=== PATIENT | female | born 1990 | race African-American/Black ===

== ENCOUNTER 2016-09-08 18:41 | Emergency (ER) | payer OTHER ==
[2016-09-08 20:46] LABS: MEAN CORPUSCULAR HGB CONC 31.5 g/dl (32.0-36.5); MEAN CORPUSCULAR VOLUME 82.4 fl (80.0-96.0); RED CELL DISTRIBUTION WIDTH 15.5 % (11.5-14.5); WHITE BLOOD COUNT 8.6 K/mm3 (4.0-10.0)
--- NOTE | 2016-09-08 20:50 | REPUSA ---
CLINICAL HISTORY: with vaginal bleeding TECHNIQUE: Transabdominal and endovaginal ultrasound of the pelvis was performed. FINDINGS: The uterus is anteverted containing a single live intrauterine gestational sac with p ole. CRL measures 1.6 cm correlating to 8 weeks, 0 days. motion and heart rate detected at 160 BPM. 1.3 x 0.6 0.5 cm hemorrhage identified superior to the right of the gestational sac. Both ovaries are identified without adnexal mass or pelvic fluid collection. IMPRESSION: Single live intrauterine correlating to a weeks, 0 days gestation with expected date of del grayson 04/20/2017. 1.3 x 0.6 0.5 cm hemorrhage identified superior to the right of the gestational sac. Close clinical follow-up with serial beta-hCG and short interim pelvic ultrasound recommended.
[2016-09-08 21:23] LABS: ANION GAP 11 MEQ/L (8-16); BLOOD UREA NITROGEN 7 MG/DL (7-18); CALCIUM LEVEL 9.2 MG/DL (8.5-10.1); CARBON DIOXIDE LEVEL 24 MEQ/L (21-32); CHLORIDE LEVEL 102 MEQ/L (98-107); CREATININE FOR GFR 0.67 MG/DL (0.55-1.02); GLOMERULAR FILTRATION RATE > 60.0 (>60); GLUCOSE, FASTING 83 MG/DL (70-105); HCG, SERUM QUANTITATIVE 72973 MIU/ML; POTASSIUM SERUM 4.1 MEQ/L (3.5-5.1); SODIUM LEVEL 137 MEQ/L (136-145)
[2016-09-08] MEDS ORDERED: ACETAMINOPHEN 325 MG TAB As Ordered ONE (21:42)
--- NOTE | 2016-09-08 22:25 | EDDOCDS ---
Physician Documentation [facility] Name: Sarah Terry Age: 26 yrs Sex: Female : 1990 Arrival Date: 09/08/2016 Time: 18:41 Bed I1 / M1 Private MD: Nikhil Sagastume [facility] Disposition: 09/08/16 22:01 Discharged to Home/Self Care. Impression: Threatened . - Condition is Stable. - Discharge Instructions: Threatened Miscarriage, Subchorionic Hematoma. - Medication Reconciliation, Local Pharmacy Hours form. - Follow up: Rocio Sanz CNM; When: Call to arrange an appointment; Reason: Recheck today's complaints, Continuance of care. - Problem is new. - Symptoms are unchanged. Historical: - Allergies: no known allergies; - Home Meds: 1. 1 mg Oral tab daily - PMHx: none; - PSHx: none; - Social history: Smoking status: Patient states was never smoker of tobacco. No barriers to communication noted, The patient speaks fluent Cook Islander, Speaks appropriately for age. - Family history: Not pertinent. - : The pt / caregiver states he / she is not on anticoagulants. Home medication list is obtained from the patient. - Exposure Risk Screening:: None identified. 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 3 in. (160.02 cm) (R); Pain 4/10; 22:02 BP 128 / 69; Pulse 97; Resp 18; Temp 98.4(O); Pulse Ox 100% on R/A; Pain 0/10; jmv 18:44 Body Mass Index 33.66 (86.18 kg, 160.02 cm) gr2 MDM: 19:33 Undress patient appropriately for examination ordered. mo1 19:33 Set up pelvic ordered. mo1 19:33 Complete Blood Count Ordered. EDMS 19:33 Dex (Kleihauer Betke) Ordered. EDMS 19:33 Rh Only Ordered. EDMS 19:33 Urinalysis Ordered. EDMS 19:33 Urine Culture Ordered. EDMS 19:33 GC & Chlamydia Amplification Ordered. EDMS 19:33 Wet Prep Ordered. EDMS 19:33 BMP Ordered. EDMS 19:35 US 1st trimester Ordered. EDMS 19:49 Financial registration complete. gjb 19:50 [facility] Payment Agreement was scanned into [employer] and attached to record. gjb 20:45 HCG, SERUM QUANTITATIVE Ordered. EDMS 21:16 Wet Prep Reviewed. mo1 21:16 Urinalysis Reviewed. mo1 21:16 Rh Only Reviewed. mo1 21:16 Complete Blood Count Reviewed. mo1 21:39 Acetaminophen Tablet 975 mg PO once ordered. mo1 21:39 HCG, SERUM QUANTITATIVE Reviewed. mo1 21:39 BMP Reviewed. mo1 Administered Medications: 21:45 Drug: Acetaminophen 975 mg [acetaminophen 325 mg tablet (3 tabs)] Route: PO; lf1 Signatures: Dispatcher [employer] EDIA Kosta Abdullahi RN RN mlb1 Indy Segura RN RN lf1 Ale Trejo RN RN ttb Kosta Kelley PA PA mo1 Kaela Green b The chart was reviewed and I authenticate all verbal orders and agree with the evaluation and treatment provided.Attachments: 19:50 [facility] Payment Agreement gj MTDD
--- NOTE | 2016-09-08 22:25 | EDDOCDS ---
Nurse's Notes [facility] Name: Sarah Terry Age: 26 yrs Sex: Female : 1990 Arrival Date: 09/08/2016 Time: 18:41 Bed I1 / M1 Private MD: Nikhil Sagastume [facility] Diagnosis: Threatened Presentation: 09/08 18:46 Presenting complaint: Patient states: 8 weeks vaginal bleeding with tissue mlb1 began today also reports lower back cramping. Risk factors: The patient reports no loss of conciousness prior to arrival. This patient has not had a hysterectomy. This patient has not begun menopause. Adult Sepsis Screening: The patient does not have new or worsening altered mentation. Patient's respiratory rate is less than 22. Systolic blood pressure is greater than 100. Patient has a qSOFA score of 0- Negative Sepsis Screen. Suicide/Homicide risk assessment- the patient denies having any suicidal and/or homicidal ideations and does not present with any other emotional, behavioral or mental health complaints. Status: The patient is a dependent. Transition of care: patient was not received from another setting of care. 18:46 Acuity: EDGAR Level 3 mlb1 18:46 Method Of Arrival: Walkin/Carried/Asstd mlb1 Triage Assessment: 18:47 General: Appears in no apparent distress, Behavior is appropriate for age, cooperative. mlb1 Pain: Location: low back area Pain currently is 2 out of 10 on a pain scale. Pt Declines HIV testing. : Reports vaginal bleeding that is light flow. 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 1 mg Oral tab daily - PMHx: none; - PSHx: none; - Social history: Smoking status: Patient states was never smoker of tobacco. No barriers to communication noted, The patient speaks fluent Mongolian, Speaks appropriately for age. - Family history: Not pertinent. - : The pt / caregiver states he / she is not on anticoagulants. Home medication list is obtained from the patient. - Exposure Risk Screening:: None identified. Screenin:33 Screening information is obtained from the patient. Fall risk: No risks identified. jo3 Assistance ADL's: requires no assistance with activities of daily living. Abuse/DV Screen: The patient / caregiver reports he/she is: not in a situation that causes fear, pain or injury. Nutritional screening: No deficits noted. Advance Directives: There is no active DNR order. home support is adequate. Assessment: 20:30 General: Appears in no apparent distress, comfortable, Behavior is appropriate for age, jo3 cooperative, pleasant. Neurological: Level of Consciousness is awake, alert, Oriented to person, place, time. Cardiovascular: No deficits noted. Respiratory: Airway is patent Respiratory effort is even, unlabored. : Reports cramping vaginal bleeding that is bright red light flow. Derm: Skin is intact, Skin is dry, Skin is normal, Skin temperature is warm. 21:38 Adult Sepsis Screening: The patient does not have new or worsening altered mentation. lf1 Patient's respiratory rate is less than 22. Systolic blood pressure is greater than 100. Patient has a qSOFA score of 0- Negative Sepsis Screen. General: Appears in no apparent distress, comfortable, Behavior is cooperative. Pain: Location: headache Pain currently is 3 out of 10 on a pain scale. Neurological: Level of Consciousness is awake, alert. EENT: No deficits noted. Respiratory: Respiratory effort is even, unlabored. GI: Denies nausea, vomiting. Derm: Skin is normal. 22:23 Reassessment: Patient appears in no apparent distress at this time. Patient denies pain ttb at this time. Patient states feeling better. Patient states symptoms have improved. pt states she is comfortable going home at this time. NAD noted. DC instructions given.. Neurological: Level of Consciousness is awake, alert. Respiratory: Airway is patent Respiratory effort is even, unlabored. GI: Denies nausea, vomiting. GI: Denies pain. Derm: Skin is normal. Vital Signs: 18:44 BP 135 / 78; Pulse 106; Resp 18 S; Temp 98.7(O); Pulse Ox 100% on R/A; Weight 86.18 kg gr2 (R); Height 5 ft. 3 in. (160.02 cm) (R); Pain 4/10; 22:02 BP 128 / 69; Pulse 97; Resp 18; Temp 98.4(O); Pulse Ox 100% on R/A; Pain 0/10; jmv 18:44 Body Mass Index 33.66 (86.18 kg, 160.02 cm) gr2 Vitals: 18:44 Log In Time: September 08, 2016 at 18:44. gr2 ED Course: 18:43 Patient visited by Vicki Puentes. gr2 18:43 Nikhil Sagastume [facility] is Private Physician. gr2 18:43 Patient moved to Waiting gr2 18:45 Patient visited by Vicki Puentes. gr2 18:47 Triage Initiated mlb1 18:48 Patient visited by Kosta Abdullahi RN. mlb1 19:04 Patient moved to Pre RCE mcp 19:06 Patient moved to Triage 1 rs6 19:23 Kosta Kelley PA is PHCP. mo1 19:23 Dustin Haywood DO is Attending Physician. mo1 19:32 Patient visited by Kosta Kelley PA. mo1 19:36 Patient moved to I1 / M1 mb9 19:50 [facility] Payment Agreement was scanned into [employer] and attached to record. gjb 20:06 Patient moved to Ultrasound br3 20:18 Patient moved to I1 / M1 br3 20:22 Patient visited by Eloisa Figueroa PCA. rs6 20:22 Urine Culture Sent. rs6 20:22 Urinalysis Sent. rs6 20:29 BMP Sent. jmv 20:29 Complete Blood Count Sent. jmv 20:29 Dex (Kleihauer Betke) Sent. jmv 20:29 Rh Only Sent. jmv 20:32 Labs drawn. (by ED staff). Sent per order to lab. jo3 20:33 Patient visited by Nayeli Anderson RN. jo3 20:33 The patient / caregiver is instructed regarding the plan of care and ED course. jo3 20:51 Wet Prep Sent. rs6 20:51 GC & Chlamydia Amplification Sent. rs6 20:52 HCG, SERUM QUANTITATIVE Sent. rs6 21:43 US 1st trimester Returned. EDMS 21:45 Patient visited by Indy Segura RN. lf1 21:46 Door closed. Noise minimized. lf1 22:01 Rocio Sanz CNM is Referral Physician. mo1 22:03 Patient visited by Willis Mullen PCA. jmv 22:23 Patient has correct armband on for positive identification. ttb 22:23 No IV's were initiated during this patient's visit. No procedures done that require ttb assistance. Administered Medications: 21:45 Drug: Acetaminophen 975 mg [acetaminophen 325 mg tablet (3 tabs)] Route: PO; lf1 Order Results: Lab Order: Complete Blood Count; [facility]09/08/16 20:21 Test: WHITE BLOOD COUNT; Value: 8.6; Range: 4.0-10.0; Units: K/mm3; Status: F Test: RED BLOOD COUNT; Value: 4.95; Range: 4.00-5.40; Units: M/mm3; Status: F Test: HEMOGLOBIN; Value: 12.9; Range: 12.0-16.0; Units: g/dl; Status: F Test: HEMATOCRIT; Value: 40.8; Range: 36.0-47.0; Units: %; Status: F Test: MEAN CORPUSCULAR VOLUME; Value: 82.4; Range: 80.0-96.0; Units: fl; Status: F Test: MEAN CORPUSCULAR HEMOGLOBIN; Value: 26.0; Range: 27.0-33.0; Abnormal: Below low normal; Units: pg; Status: F Test: MEAN CORPUSCULAR HGB CONC; Value: 31.5; Range: 32.0-36.5; Abnormal: Below low normal; Units: g/dl; Status: F Test: RED CELL DISTRIBUTION WIDTH; Value: 15.5; Range: 11.5-14.5; Abnormal: Above high normal; Units: %; Status: F Test: PLATELET COUNT, AUTOMATED; Value: 414; Range: 150-450; Units: k/mm3; Status: F Lab Order: Rh Only; SPEC09/08/16 20:21 Test: RH; Value: POSITIVE; Status: F Lab Order: Urinalysis; SPEC09/08/16 20:21 Test: APPEARANCE, URINE; Value: CLEAR; Range: CLEAR; Status: F Test: COLOR, URINE; Value: STRAW; Range: YELLOW; Status: F Test: PH,URINE; Value: 6.0; Range: 5.0-9.0; Units: UNITS; Status: F Test: SPECIFIC GRAVITY URINE AUTO; Value: 1.006; Range: 1.002-1.035; Status: F Test: PROTEIN, URINE AUTO; Value: NEGATIVE; Range: NEGATIVE; Units: mg/dL; Status: F Test: GLUCOSE, URINE (UA) AUTO; Value: NEGATIVE; Range: NEGATIVE; Units: mg/dL; Status: F Test: KETONE, URINE AUTO; Value: NEGATIVE; Range: NEGATIVE; Units: mg/dL; Status: F Test: UROBILINOGEN, URINE AUTO; Value: 0.2; Range: 0.0-2.0; Units: mg/dL; Status: F Test: BILIRUBIN, URINE AUTO; Value: NEGATIVE; Range: NEGATIVE; Status: F Test: NITRITE, URINE AUTO; Value: NEGATIVE; Range: NEGATIVE; Status: F Test: LEUKOCYTE ESTERASE, URINE AUTO; Value: NEGATIVE; Range: NEGATIVE; Status: F Test: BLOOD, URINE BLOOD; Value: NEGATIVE; Range: NEGATIVE; Status: F Test: WBC, URINE AUTO; Value: 0; Range: 0-3; Units: /HPF; Status: F Test: RBC, URINE AUTO; Value: 1; Range: 0-3; Units: /HPF; Status: F Test: BACTERIA, URINE AUTO; Value: NEGATIVE; Range: NEGATIVE; Status: F Test: SQUAMOUS EPITHELIAL CELL UR AU; Value: 0; Range: 0-6; Units: /HPF; Status: F Test: HYALINE CAST, URINE AUTO; Value: 0; Range: 0-1; Units: /LPF; Status: F Lab Order: Wet Prep; SPEC'M 09/08/16 20:21 Test: WET PREP; Value: WET PREP RESULT; Status: F Test: WET PREP; Value: MANY EPITHELIAL CELLS PRESENT; Status: F Test: WET PREP; Value: MANY WBC; Status: F Test: WET PREP; Value: MANY SHORT RODS PRESENT; Status: F Lab Order: BMP; SPEC'M 09/08/16 20:21 Test: GLUCOSE, FASTING; Value: 83; Range: 70-105; Units: MG/DL; Status: F Test: BLOOD UREA NITROGEN; Value: 7; Range: 7-18; Units: MG/DL; Status: F Test: CREATININE FOR GFR; Value: 0.67; Range: 0.55-1.02; Units: MG/DL; Status: F Test: GLOMERULAR FILTRATION RATE; Value: > 60.0; Range: >60; Status: F Test: SODIUM LEVEL; Value: 137; Range: 136-145; Units: MEQ/L; Status: F Test: POTASSIUM SERUM; Value: 4.1; Range: 3.5-5.1; Units: MEQ/L; Status: F Test: CHLORIDE LEVEL; Value: 102; Range: 98-107; Units: MEQ/L; Status: F Test: CARBON DIOXIDE LEVEL; Value: 24; Range: 21-32; Units: MEQ/L; Status: F Test: ANION GAP; Value: 11; Range: 8-16; Units: MEQ/L; Status: F Test: CALCIUM LEVEL; Value: 9.2; Range: 8.5-10.1; Units: MG/DL; Status: F Test Note: ; Units are mL/min/1.73 m2 Chronic Kidney Disease Staging per NKF: Stage I & II GFR >=60 Normal to Mildly Decreased Stage III GFR 30-59 Moderately Decreased Stage IV GFR 15-29 Severely Decreased Stage V GFR <15 Very Little GFR Left ESRD GFR <15 on BLANKET FOLDER Lab Order: HCG, SERUM QUANTITATIVE; SPEC'M 09/08/16 20:21 Test: HCG, SERUM QUANTITATIVE; Value: 75754; Units: MIU/ML; Status: F Test Note: ; GESTATIONAL AGE APPROXIMATE HCG RANGE (MIU/ML) 0.2-1 WEEK 5-50 1-2 WEEKS 50-500 2-3 WEEKS 100-5,000 3-4 WEEKS 500-10,000 4-5 WEEKS 1,000-50,000 5-6 WEEKS 10,000-100,000 6-8 WEEKS 15,000-200,000 2-3 MONTHS 10,000-100,000 NON FEMALES LESS THAN 3.0 Patient samples may contain human heterophilic antibodies that could react with immunoassays to give falsely elevated or depressed results. This assay has been designed to minimize interference from heterophilic antibodies. Elevated hCG levels have also been associated with trophoblastic disease and nontrophoblastic neoplasms. The possibility of having these diseases should be considered before a diagnosis of is made. This test is not intended for use as a surrogate marker for aiding in the diagnosis or monitoring the treatment of cancer patients. [employer] methodology. Radiology Order: US 1st trimester Test: US 1st trimester REASON FOR EXAMINATION: 8wks preg, vaginal bleeding ; ; CLINICAL HISTORY: with vaginal bleeding; TECHNIQUE: Transabdominal and endovaginal ultrasound of the pelvis was performed.; FINDINGS: The uterus is anteverted containing a single live intrauterine gestational sac with p; ole.; CRL measures 1.6 cm correlating to 8 weeks, 0 days.; motion and heart rate detected at 160 BPM.; 1.3 x 0.6 0.5 cm hemorrhage identified superior to the right of the gestational sac.; Both ovaries are identified without adnexal mass or pelvic fluid collection.; IMPRESSION:; Single live intrauterine correlating to a weeks, 0 days gestation with expected date of del; grayson 04/20/2017. 1.3 x 0.6 0.5 cm hemorrhage identified superior to the right of the gestational sac.; Close clinical follow-up with serial beta-hCG and short interim pelvic ultrasound recommended.; ; Outcome: 22:01 Discharge ordered by Provider. mo1 22:23 Discharge Assessment: Patient awake, alert and oriented x 3. No cognitive and/or ttb functional deficits noted. Patient verbalized understanding of disposition instructions. Patient awake and alert. patient administered narcotics - no. The following High Risk Discharge criteria are identified: None. Discharged to home ambulatory. Condition: good Condition: stable Condition: improved. Discharge instructions given to patient, Instructed on discharge instructions, follow up and referral plans. medication usage, safety practices, Demonstrated understanding of instructions, medications, no strenuous exercise, heavy lifting, ect. Pt was receptive of discharge instructions/ teaching. Ultrasound Study completed. Property :Personal belongings accompany Pt. 22:25 Patient left the ED. ttb Signatures: Dispatcher [employer] EDMS Tamera Callahan RN Kosta Becerra mcp RN RN mlb1 Nayeli Anderson RN RN jo3 Ford, Lisa, RN RN lf1 Alba Puentes br3 Ale Trejo RN RN ttb Vicki Puentes gr2 Kosta Kelley PA PA mo1 Kosta Mckeon RN RN mb9 Eloisa Figueroa, REINSTATEMENT CLERK REINSTATEMENT CLERK rs6 Kaela Green Jose, REINSTATEMENT CLERK REINSTATEMENT CLERK jmv MTDD
--- NOTE | 2016-09-10 23:26 | EDDOCDS ---
Physician Documentation [facility] Name: Sarah Terry Age: 26 yrs Sex: Female : 1990 Arrival Date: 09/08/2016 Time: 18:41 Bed I1 / M1 Private MD: Nikhil Sagastume [facility] Disposition: 09/08/16 22:01 Discharged to Home/Self Care. Impression: Threatened . - Condition is Stable. - Discharge Instructions: Threatened Miscarriage, Subchorionic Hematoma. - Medication Reconciliation, Local Pharmacy Hours form. - Follow up: Rocio Sanz CNM; When: Call to arrange an appointment; Reason: Recheck today's complaints, Continuance of care. - Problem is new. - Symptoms are unchanged. Historical: - Allergies: no known allergies; - Home Meds: 1. 1 mg Oral tab daily - PMHx: none; - PSHx: none; - Social history: Smoking status: Patient states was never smoker of tobacco. No barriers to communication noted, The patient speaks fluent [place]iboutian, Speaks appropriately for age. - Family history: Not pertinent. - : The pt / caregiver states he / she is not on anticoagulants. Home medication list is obtained from the patient. - Exposure Risk Screening:: None identified. 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 3 in. (160.02 cm) (R); Pain 4/10; 22:02 BP 128 / 69; Pulse 97; Resp 18; Temp 98.4(O); Pulse Ox 100% on R/A; Pain 0/10; jmv 18:44 Body Mass Index 33.66 (86.18 kg, 160.02 cm) gr2 MDM: 19:33 Undress patient appropriately for examination ordered. mo1 19:33 Set up pelvic ordered. mo1 19:33 Complete Blood Count Ordered. EDMS 19:33 Dex (Kleihauer Betke) Ordered. EDMS 19:33 Rh Only Ordered. EDMS 19:33 Urinalysis Ordered. EDMS 19:33 Urine Culture Ordered. EDMS 19:33 GC & Chlamydia Amplification Ordered. EDMS 19:33 Wet Prep Ordered. EDMS 19:33 BMP Ordered. EDMS 19:35 US 1st trimester Ordered. EDMS 19:49 Financial registration complete. gjb 19:50 [facility] Payment Agreement was scanned into [employer] and attached to record. gjb 20:45 HCG, SERUM QUANTITATIVE Ordered. EDMS 21:16 Wet Prep Reviewed. mo1 21:16 Urinalysis Reviewed. mo1 21:16 Rh Only Reviewed. mo1 21:16 Complete Blood Count Reviewed. mo1 21:39 Acetaminophen Tablet 975 mg PO once ordered. mo1 21:39 HCG, SERUM QUANTITATIVE Reviewed. mo1 21:39 BMP Reviewed. mo1 09/09 11:26 T-Sheet-- Draft Copy was scanned into [employer] and attached to record. gb 11:27 Radiology Report was scanned into [employer] and attached to record. gb Administered Medications: 09/08 21:45 Drug: Acetaminophen 975 mg [acetaminophen 325 mg tablet (3 tabs)] Route: PO; lf1 Signatures: Dispatcher [employer] EDMonica Schroeder, Reg Reg gb Kosta Abdullahi RN RN mlb1 Indy SeguraRN RN lf1 Ale Trejo RN RN patricab Kosta Kelley PA PA mo1 Kaela Green The chart was reviewed and I authenticate all verbal orders and agree with the evaluation and treatment provided.Attachments: 19:50 [facility] Payment Agreement banner [facility] 09/09 11:26 T-Sheet-- Draft Copy gb Chart Complete MTDD
--- NOTE | 2016-09-10 23:26 | EDDOCDS ---
Nurse's Notes [facility] Name: Sarah Terry Age: 26 yrs Sex: Female : 1990 Arrival Date: 09/08/2016 Time: 18:41 Bed I1 / M1 Private MD: Nikhil Sagastume [facility] Diagnosis: Threatened Presentation: 09/08 18:46 Presenting complaint: Patient states: 8 weeks vaginal bleeding with tissue mlb1 began today also reports lower back cramping. Risk factors: The patient reports no loss of conciousness prior to arrival. This patient has not had a hysterectomy. This patient has not begun menopause. Adult Sepsis Screening: The patient does not have new or worsening altered mentation. Patient's respiratory rate is less than 22. Systolic blood pressure is greater than 100. Patient has a qSOFA score of 0- Negative Sepsis Screen. Suicide/Homicide risk assessment- the patient denies having any suicidal and/or homicidal ideations and does not present with any other emotional, behavioral or mental health complaints. Status: The patient is a dependent. Transition of care: patient was not received from another setting of care. 18:46 Acuity: EDGAR Level 3 mlb1 18:46 Method Of Arrival: Walkin/Carried/Asstd mlb1 Triage Assessment: 18:47 General: Appears in no apparent distress, Behavior is appropriate for age, cooperative. mlb1 Pain: Location: low back area Pain currently is 2 out of 10 on a pain scale. Pt Declines HIV testing. : Reports vaginal bleeding that is light flow. 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 1 mg Oral tab daily - PMHx: none; - PSHx: none; - Social history: Smoking status: Patient states was never smoker of tobacco. No barriers to communication noted, The patient speaks fluent Khmer, Speaks appropriately for age. - Family history: Not pertinent. - : The pt / caregiver states he / she is not on anticoagulants. Home medication list is obtained from the patient. - Exposure Risk Screening:: None identified. Screenin:33 Screening information is obtained from the patient. Fall risk: No risks identified. jo3 Assistance ADL's: requires no assistance with activities of daily living. Abuse/DV Screen: The patient / caregiver reports he/she is: not in a situation that causes fear, pain or injury. Nutritional screening: No deficits noted. Advance Directives: There is no active DNR order. home support is adequate. Assessment: 20:30 General: Appears in no apparent distress, comfortable, Behavior is appropriate for age, jo3 cooperative, pleasant. Neurological: Level of Consciousness is awake, alert, Oriented to person, place, time. Cardiovascular: No deficits noted. Respiratory: Airway is patent Respiratory effort is even, unlabored. : Reports cramping vaginal bleeding that is bright red light flow. Derm: Skin is intact, Skin is dry, Skin is normal, Skin temperature is warm. 21:38 Adult Sepsis Screening: The patient does not have new or worsening altered mentation. lf1 Patient's respiratory rate is less than 22. Systolic blood pressure is greater than 100. Patient has a qSOFA score of 0- Negative Sepsis Screen. General: Appears in no apparent distress, comfortable, Behavior is cooperative. Pain: Location: headache Pain currently is 3 out of 10 on a pain scale. Neurological: Level of Consciousness is awake, alert. EENT: No deficits noted. Respiratory: Respiratory effort is even, unlabored. GI: Denies nausea, vomiting. Derm: Skin is normal. 22:23 Reassessment: Patient appears in no apparent distress at this time. Patient denies pain ttb at this time. Patient states feeling better. Patient states symptoms have improved. pt states she is comfortable going home at this time. NAD noted. DC instructions given.. Neurological: Level of Consciousness is awake, alert. Respiratory: Airway is patent Respiratory effort is even, unlabored. GI: Denies nausea, vomiting. GI: Denies pain. Derm: Skin is normal. Vital Signs: 18:44 BP 135 / 78; Pulse 106; Resp 18 S; Temp 98.7(O); Pulse Ox 100% on R/A; Weight 86.18 kg gr2 (R); Height 5 ft. 3 in. (160.02 cm) (R); Pain 4/10; 22:02 BP 128 / 69; Pulse 97; Resp 18; Temp 98.4(O); Pulse Ox 100% on R/A; Pain 0/10; jmv 18:44 Body Mass Index 33.66 (86.18 kg, 160.02 cm) gr2 Vitals: 18:44 Log In Time: September 08, 2016 at 18:44. gr2 ED Course: 18:43 Patient visited by Vicki Puentes. gr2 18:43 Nikhil Sagastume [facility] is Private Physician. gr2 18:43 Patient moved to Waiting gr2 18:45 Patient visited by Vicki Puentes. gr2 18:47 Triage Initiated mlb1 18:48 Patient visited by Kosta Abdullahi RN. mlb1 19:04 Patient moved to Pre RCE mcp 19:06 Patient moved to Triage 1 rs6 19:23 Kosta Kelley PA is PHCP. mo1 19:23 Dustin Haywood DO is Attending Physician. mo1 19:32 Patient visited by Kosta Kelley PA. mo1 19:36 Patient moved to I1 / M1 mb9 19:50 [facility] [facility] [place] was scanned into [employer] and attached to record. gjb 20:06 Patient moved to Ultrasound br3 20:18 Patient moved to I1 / M1 br3 20:22 Patient visited by Eloisa Figueroa PCA. rs6 20:22 Urine Culture Sent. rs6 20:22 Urinalysis Sent. rs6 20:29 BMP Sent. jmv 20:29 Complete Blood Count Sent. jmv 20:29 Dex (Kleihauer Betke) Sent. jmv 20:29 Rh Only Sent. jmv 20:32 Labs drawn. (by ED staff). Sent per order to lab. jo3 20:33 Patient visited by Nayeli Anderson RN. jo3 20:33 The patient / caregiver is instructed regarding the plan of care and ED course. jo3 20:51 Wet Prep Sent. rs6 20:51 GC & Chlamydia Amplification Sent. rs6 20:52 HCG, SERUM QUANTITATIVE Sent. rs6 21:43 US 1st trimester Returned. EDMS 21:45 Patient visited by Indy Segura RN. lf1 21:46 Door closed. Noise minimized. lf1 22:01 Rocio Sanz CNM is Referral Physician. mo1 22:03 Patient visited by Willis Mullen PCA. jmv 22:23 Patient has correct armband on for positive identification. ttb 22:23 No IV's were initiated during this patient's visit. No procedures done that require ttb assistance. 09/09 11:26 T-Sheet-- Draft Copy was scanned into [employer] and attached to record. 11:27 Radiology Report was scanned into [employer] and attached to record. gb Administered Medications: 09/08 21:45 Drug: Acetaminophen 975 mg [acetaminophen 325 mg tablet (3 tabs)] Route: PO; lf1 Order Results: Lab Order: Complete Blood Count; SPEC'M 09/08/16 20:21 Test: WHITE BLOOD COUNT; Value: 8.6; Range: 4.0-10.0; Units: K/mm3; Status: F Test: RED BLOOD COUNT; Value: 4.95; Range: 4.00-5.40; Units: M/mm3; Status: F Test: HEMOGLOBIN; Value: 12.9; Range: 12.0-16.0; Units: g/dl; Status: F Test: HEMATOCRIT; Value: 40.8; Range: 36.0-47.0; Units: %; Status: F Test: MEAN CORPUSCULAR VOLUME; Value: 82.4; Range: 80.0-96.0; Units: fl; Status: F Test: MEAN CORPUSCULAR HEMOGLOBIN; Value: 26.0; Range: 27.0-33.0; Abnormal: Below low normal; Units: pg; Status: F Test: MEAN CORPUSCULAR HGB CONC; Value: 31.5; Range: 32.0-36.5; Abnormal: Below low normal; Units: g/dl; Status: F Test: RED CELL DISTRIBUTION WIDTH; Value: 15.5; Range: 11.5-14.5; Abnormal: Above high normal; Units: %; Status: F Test: PLATELET COUNT, AUTOMATED; Value: 414; Range: 150-450; Units: k/mm3; Status: F Lab Order: Rh Only; SPEC'M 09/08/16 20:21 Test: RH; Value: POSITIVE; Status: F Lab Order: Urinalysis; SPEC'M 09/08/16 20:21 Test: APPEARANCE, URINE; Value: CLEAR; Range: CLEAR; Status: F Test: COLOR, URINE; Value: STRAW; Range: YELLOW; Status: F Test: PH,URINE; Value: 6.0; Range: 5.0-9.0; Units: UNITS; Status: F Test: SPECIFIC GRAVITY URINE AUTO; Value: 1.006; Range: 1.002-1.035; Status: F Test: PROTEIN, URINE AUTO; Value: NEGATIVE; Range: NEGATIVE; Units: mg/dL; Status: F Test: GLUCOSE, URINE (UA) AUTO; Value: NEGATIVE; Range: NEGATIVE; Units: mg/dL; Status: F Test: KETONE, URINE AUTO; Value: NEGATIVE; Range: NEGATIVE; Units: mg/dL; Status: F Test: UROBILINOGEN, URINE AUTO; Value: 0.2; Range: 0.0-2.0; Units: mg/dL; Status: F Test: BILIRUBIN, URINE AUTO; Value: NEGATIVE; Range: NEGATIVE; Status: F Test: NITRITE, URINE AUTO; Value: NEGATIVE; Range: NEGATIVE; Status: F Test: LEUKOCYTE ESTERASE, URINE AUTO; Value: NEGATIVE; Range: NEGATIVE; Status: F Test: BLOOD, URINE BLOOD; Value: NEGATIVE; Range: NEGATIVE; Status: F Test: WBC, URINE AUTO; Value: 0; Range: 0-3; Units: /HPF; Status: F Test: RBC, URINE AUTO; Value: 1; Range: 0-3; Units: /HPF; Status: F Test: BACTERIA, URINE AUTO; Value: NEGATIVE; Range: NEGATIVE; Status: F Test: SQUAMOUS EPITHELIAL CELL UR AU; Value: 0; Range: 0-6; Units: /HPF; Status: F Test: HYALINE CAST, URINE AUTO; Value: 0; Range: 0-1; Units: /LPF; Status: F Lab Order: Urine Culture; SPEC'M 09/08/16 20:21 Test: URINE CULTURE; Value: URINE CULTURE RESULT NO GROWTH CLINICAL SIGNIFICANCE 1 ORGANISM; Status: F Lab Order: GC & Chlamydia Amplification; SPEC'M 09/08/16 20:21 Test: CHLAMYDIA DNA AMPLIFICATION; Value: NEGATIVE; Range: NEGATIVE; Status: F Test: GC DNA AMPLIFICATION; Value: NEGATIVE; Range: NEGATIVE; Status: F Lab Order: Wet Prep; SPEC'M 09/08/16 20:21 Test: WET PREP; Value: WET PREP RESULT; Status: F Test: WET PREP; Value: MANY EPITHELIAL CELLS PRESENT; Status: F Test: WET PREP; Value: MANY WBC; Status: F Test: WET PREP; Value: MANY SHORT RODS PRESENT; Status: F Lab Order: BMP; SPEC'M 09/08/16 20:21 Test: GLUCOSE, FASTING; Value: 83; Range: 70-105; Units: MG/DL; Status: F Test: BLOOD UREA NITROGEN; Value: 7; Range: 7-18; Units: MG/DL; Status: F Test: CREATININE FOR GFR; Value: 0.67; Range: 0.55-1.02; Units: MG/DL; Status: F Test: GLOMERULAR FILTRATION RATE; Value: > 60.0; Range: >60; Status: F Test: SODIUM LEVEL; Value: 137; Range: 136-145; Units: MEQ/L; Status: F Test: POTASSIUM SERUM; Value: 4.1; Range: 3.5-5.1; Units: MEQ/L; Status: F Test: CHLORIDE LEVEL; Value: 102; Range: 98-107; Units: MEQ/L; Status: F Test: CARBON DIOXIDE LEVEL; Value: 24; Range: 21-32; Units: MEQ/L; Status: F Test: ANION GAP; Value: 11; Range: 8-16; Units: MEQ/L; Status: F Test: CALCIUM LEVEL; Value: 9.2; Range: 8.5-10.1; Units: MG/DL; Status: F Test Note: ; Units are mL/min/1.73 m2 Chronic Kidney Disease Staging per NKF: Stage I & II GFR >=60 Normal to Mildly Decreased Stage III GFR 30-59 Moderately Decreased Stage IV GFR 15-29 Severely Decreased Stage V GFR <15 Very Little GFR Left ESRD GFR <15 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 This assay has been designed to minimize interference from heterophilic antibodies. Elevated hCG levels have also been associated with trophoblastic disease and nontrophoblastic neoplasms. The possibility of having these diseases should be considered before a diagnosis of is made. This test is not intended for use as a surrogate marker for aiding in the diagnosis or monitoring the treatment of cancer patients. [employer] methodology. Radiology Order: US 1st trimester Test: US 1st trimester REASON FOR EXAMINATION: 8wks preg, vaginal bleeding ; ; CLINICAL HISTORY: with vaginal bleeding; TECHNIQUE: Transabdominal and endovaginal ultrasound of the pelvis was performed.; FINDINGS: The uterus is anteverted containing a single live intrauterine gestational sac with p; ole.; CRL measures 1.6 cm correlating to 8 weeks, 0 days.; motion and heart rate detected at 160 BPM.; 1.3 x 0.6 0.5 cm hemorrhage identified superior to the right of the gestational sac.; Both ovaries are identified without adnexal mass or pelvic fluid collection.; IMPRESSION:; Single live intrauterine correlating to a weeks, 0 days gestation with expected date of del; grayson 04/20/2017. 1.3 x 0.6 0.5 cm hemorrhage identified superior to the right of the gestational sac.; Close clinical follow-up with serial beta-hCG and short interim pelvic ultrasound recommended.; ; Outcome: 22:01 Discharge ordered by Provider. mo1 22:23 Discharge Assessment: Patient awake, alert and oriented x 3. No cognitive and/or ttb functional deficits noted. Patient verbalized understanding of disposition instructions. Patient awake and alert. patient administered narcotics - no. The following High Risk Discharge criteria are identified: None. Discharged to home ambulatory. Condition: good Condition: stable Condition: improved. Discharge instructions given to patient, Instructed on discharge instructions, follow up and referral plans. medication usage, safety practices, Demonstrated understanding of instructions, medications, no strenuous exercise, heavy lifting, ect. Pt was receptive of discharge instructions/ teaching. Ultrasound Study completed. Property :Personal belongings accompany Pt. 22:25 Patient left the ED. ttb Signatures: Dispatcher [employer] EDMS Tamera Callahan, RN RN Monica Quiroz, Kosta Correa RN RN mlb1 Nayeli Anderson,RN RN jo3 Colton,Indy,RN RN lf1 Alba Puentes br3 Ale Trejo, RN RN ttb Vicki Puentes gr2 Kosta Kelley PA PA mo1 Kosta Mckeon,SHIRAZ RN mb9 Eloisa Figueroa, PHOTOGRAPH ENLARGER PHOTOGRAPH ENLARGER rs6 Kaela Green Jose, PHOTOGRAPH ENLARGER PHOTOGRAPH ENLARGER jmv Chart Complete MTDD
--- NOTE | 2016-09-10 23:26 | EDDOCDS ---
Physician Documentation [facility] Name: Sarah Terry Age: 26 yrs Sex: Female : 1990 Arrival Date: 09/08/2016 Time: 18:41 Bed I1 / M1 Private MD: Nikhil Sagastume [facility] Disposition: 09/08/16 22:01 Discharged to Home/Self Care. Impression: Threatened . - Condition is Stable. - Discharge Instructions: Threatened Miscarriage, Subchorionic Hematoma. - Medication Reconciliation, Local Pharmacy Hours form. - Follow up: Rocio Sanz CNM; When: Call to arrange an appointment; Reason: Recheck today's complaints, Continuance of care. - Problem is new. - Symptoms are unchanged. Historical: - Allergies: no known allergies; - Home Meds: 1. 1 mg Oral tab daily - PMHx: none; - PSHx: none; - Social history: Smoking status: Patient states was never smoker of tobacco. No barriers to communication noted, The patient speaks fluent Chilean, Speaks appropriately for age. - Family history: Not pertinent. - : The pt / caregiver states he / she is not on anticoagulants. Home medication list is obtained from the patient. - Exposure Risk Screening:: None identified. 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 3 in. (160.02 cm) (R); Pain 4/10; 22:02 BP 128 / 69; Pulse 97; Resp 18; Temp 98.4(O); Pulse Ox 100% on R/A; Pain 0/10; jmv 18:44 Body Mass Index 33.66 (86.18 kg, 160.02 cm) gr2 MDM: 19:33 Undress patient appropriately for examination ordered. mo1 19:33 Set up pelvic ordered. mo1 19:33 Complete Blood Count Ordered. EDMS 19:33 Dex (Kleihauer Betke) Ordered. EDMS 19:33 Rh Only Ordered. EDMS 19:33 Urinalysis Ordered. EDMS 19:33 Urine Culture Ordered. EDMS 19:33 GC & Chlamydia Amplification Ordered. EDMS 19:33 Wet Prep Ordered. EDMS 19:33 BMP Ordered. EDMS 19:35 US 1st trimester Ordered. EDMS 19:49 Financial registration complete. gjb 19:50 [facility] Payment Agreement was scanned into [employer] and attached to record. gjb 20:45 HCG, SERUM QUANTITATIVE Ordered. EDMS 21:16 Wet Prep Reviewed. mo1 21:16 Urinalysis Reviewed. mo1 21:16 Rh Only Reviewed. mo1 21:16 Complete Blood Count Reviewed. mo1 21:39 Acetaminophen Tablet 975 mg PO once ordered. mo1 21:39 HCG, SERUM QUANTITATIVE Reviewed. mo1 21:39 BMP Reviewed. mo1 09/09 11:26 T-Sheet-- Draft Copy was scanned into [employer] and attached to record. gb 11:27 Radiology Report was scanned into [employer] and attached to record. gb Administered Medications: 09/08 21:45 Drug: Acetaminophen 975 mg [acetaminophen 325 mg tablet (3 tabs)] Route: PO; lf1 Signatures: Dispatcher [employer] EDMonica Schroeder, Reg Reg gb Kosta Abdullahi RN RN mlb1 Indy SeguraRN RN lf1 Ale Trejo RN RN patricab Kosta Kelley PA PA mo1 Kaela Green The chart was reviewed and I authenticate all verbal orders and agree with the evaluation and treatment provided.Attachments: 19:50 [facility] Payment Agreement [facility] 09/09 11:26 T-Sheet-- Draft Copy gb Chart Complete MTDD
== END 2016-09-08 22:25 | disposition home or self-care (01) ==
LOC: M ED 18:41
DX: O20.0 Threatened abortion (principal); Z3A.08 8 weeks gestation of pregnancy

== ENCOUNTER → 2016-09-10 | Outpatient (CLI) | payer OTHER ==
[2016-09-10 20:40] LABS: BASO % 0.4 % (0.0-1.0); EOS # 0.2 K/mm3 (0.0-0.50); EOS % 2.1 % (0.0-3.0); LARGE UNSTAINED CELL # 0.2 K/mm3 (0.0-0.4); LARGE UNSTAINED CELL % 2.1 % (0.0-4.0); LYMPH # 1.5 K/mm3 (1.5-6.5); LYMPH % 21.3 % (24.0-44.0); MEAN CORPUSCULAR HGB CONC 32.1 g/dl (32.0-36.5); MEAN CORPUSCULAR VOLUME 81.2 fl (80.0-96.0); MONO # 0.4 K/mm3 (0.0-0.8); MONO % 6.1 % (0.0-5.0); NEUTROPHILS # 4.8 K/mm3 (1.8-7.7); PLATELET COUNT, AUTOMATED 441 k/mm3 (150-450); RED CELL DISTRIBUTION WIDTH 14.3 % (11.5-14.5)
[2016-09-13 07:20] LABS: WHITE BLOOD COUNT 7.1 K/mm3 (4.0-10.0)
[2016-09-13 11:16] LABS: HBsAg Prenatal NEGATIVE (NEGATIVE)
[2016-09-13 12:51] LABS: CONTROL LINE INT CTR LINE PRESENT; HIV SCRN NEGATIVE (NEGATIVE); HIV SCRN1 NEGATIVE (NEGATIVE)
== END ==
LOC: M LRY 16:39
PROVIDERS: ATTEND Obstetrics & Gynecology
DX: Z34.81 Encounter for supervision of other normal pregnancy, first trimester (principal)

== ENCOUNTER 2017-05-07 10:05 | Emergency (ER) | payer OTHER ==
[~2017-05-07] VITALS: Ht 157.5 cm; Wt 81.8 kg
[2017-05-07 10:06] VITALS: BP 156/87
[2017-05-07] MEDS ORDERED: PREN1TAB18 PO (10:15)
[2017-05-07] MEDS ORDERED: BACT800T5 PO (11:03)
[2017-05-11] MEDS ORDERED: NITR100C39 PO (21:32)
== END 2017-05-07 11:09 | disposition home or self-care (01) ==
LOC: M ED 10:05
DX: N30.00 Acute cystitis without hematuria (principal); E66.9 Obesity, unspecified

== ENCOUNTER → 2017-12-19 | Outpatient (REF) | payer OTHER ==
[2017-12-19 16:03] LABS: EOS # 0.1 10^3/uL (0.0-0.50); EOS % 1.7 % (0.0-3.0); HEMOGLOBIN 12.8 g/dl (12.0-15.5); IMMATURE GRANULOCYTE % 0.2 % (0-3.0); LYMPH # 1.6 10^3/uL (1.5-6.5); LYMPH % 37.1 % (24.0-44.0); MEAN CORPUSCULAR HEMOGLOBIN 27.5 pg (27.0-33.0); MEAN CORPUSCULAR HGB CONC 32.8 g/dl (32.0-36.5); MEAN CORPUSCULAR VOLUME 83.7 fl (80.0-96.0); MONO # 0.4 10^3/uL (0.0-0.8); MONO % 8.8 % (0.0-5.0); NEUTROPHILS # 2.2 10^3/uL (1.8-7.7); NEUTROPHILS % 51.2 % (36.0-66.0); PLATELET COUNT, AUTOMATED 350 10^3/uL (150-450); RED BLOOD COUNT 4.66 10^6/uL (4.00-5.40); RED CELL DISTRIBUTION WIDTH 14.3 % (11.5-14.5); WHITE BLOOD COUNT 4.2 10^3/uL (4.0-10.0)
[2017-12-19 16:23] LABS: C REACTIVE PROTEIN QUANTITATIV 0.35 MG/DL (0.00-0.30)
[2017-12-19 16:23] LABS: RHEUMATOID FACTOR QUANT < 10.0 IU/ML (<15.0)
[2017-12-19 16:42] LABS: ERYTHROCYTE SEDIMENTATION RATE 17 mm/hr (0-20)
[2017-12-22 14:14] LABS: ANTINUCLEAR ANTIBODIES DIRECT Negative (Negative); Lyme Disease IgG/IgM Antibodie <0.91 ISR (0.00-0.90); Lyme Disease IgM Ab Quantitati <0.80 index (0.00-0.79)
== END ==
LOC: M LABDRAW1 14:56
DX: R22.31 Localized swelling, mass and lump, right upper limb (principal)